=== PATIENT | female | born 1945 | race Native Hawaiian/Other Pacific Islander ===

== ENCOUNTER 2023-04-14 08:34 | Emergency (ER) | payer OTHER ==
[~2023-04-14] VITALS: Ht 154.9 cm; Wt 53.1 kg
[~2023-04-14 08:34] MED LIST: DULO30CA PO; GABA100C2 PO; GLUMETZA500 MG PO; HYDR12.54 PO; LEVO0.0723 PO; LISI20TA11 PO; LOFIBRA54 MG PO; METO25TA4 PO; ZANTAC 75 PO
[2023-04-14 08:47] VITALS: TEMP 98.8
[2023-04-14 09:35] LABS: PLATELET COUNT 522 K/uL (152-353)
[2023-04-14 09:41] LABS: POTASSIUM 3.2 mmol/L (3.6-5.2)
[2023-04-14 09:48] LABS: PARTIAL THROMBOPLASTIN TIME 26.2 SECONDS (23.9-36.7)
[2023-04-14 11:30] VITALS: BP 166/60
== END 2023-04-14 12:10 | disposition home or self-care (01) ==
LOC: ED 08:34
PROVIDERS: Family Medicine
DX: N28.1 Cyst of kidney, acquired (principal); F12.90 Cannabis use, unspecified, uncomplicated
CPT/HCPCS: 36415; 80053; 82150; 83690; 83735; 85027; 85610; 85730; 93005; 96360; 96361; 96374; 96375; 99284; J2405